=== PATIENT | male | born 1975 | race African-American/Black ===

== ENCOUNTER 2019-02-01 16:24 | Emergency (ER) | payer OTHER ==
[~2019-02-01] VITALS: Ht 182.9 cm; Wt 72.6 kg
[2019-02-01 16:25] VITALS: BP 133/78
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
[2019-02-01] MEDS ORDERED: Tetanus/Diptheria/Pertussis IM ONE (16:45)
[2019-02-01] MEDS ORDERED: Neosporin Oint Ud Pkt TOP ONE (16:45)
[2019-02-01 17:53] VITALS: BP 127/70
--- NOTE | 2019-02-01 17:54 | NUR ---
ER DISCHARGE NOTE: Patient is cleared to be discharged per ERMD with spouse, pt is aox4, on room air, with stable vital signs. pt was given dc and prescription instructions, pt was able to verbalize understanding, pt id band removed without complications. pt is able to ambulate with steady gait. pt took all belongings.
[2019-02-01] MEDS ORDERED: IBUPROFEN600 MG ORAL (17:56)
[2019-02-01] MEDS ORDERED: ROBAXIN-750750 MG PO (17:56)
[2019-02-01] MEDS ORDERED: LIDODERM700 M1 TOPIC (17:56)
--- NOTE | 2019-02-01 18:54 | Diagnostic Imaging Report ---
FILM LEFT KNEE: No acute fracture or malalignment.
--- NOTE | 2019-02-01 18:56 | Diagnostic Imaging Report ---
FILM RIGHT SHOULDER: No acute fracture or dislocation.
--- NOTE | 2019-02-01 18:57 | Diagnostic Imaging Report ---
FILM RIBS: No acute displaced rib fractures.
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
== END 2019-02-01 18:13 | disposition home or self-care (01) ==
LOC: EDBD 16:24 → EMR 17:34
DX: S80.212A Abrasion, left knee, initial encounter (principal); S20.211A Contusion of right front wall of thorax, initial encounter; V43.52XA Car driver injured in collision with other type car in traffic accident, initial encounter; Y92.410 Unspecified street and highway as the place of occurrence of the external cause; Z23 Encounter for immunization; Z88.0 Allergy status to penicillin
CPT/HCPCS: 90471; 90715; 99284